=== PATIENT | male | born 1995 | race Two or more races ===

== ENCOUNTER 2018-08-28 22:08 | Emergency (ER) | payer OTHER ==
[~2018-08-28] VITALS: Ht 162.6 cm; Wt 96.6 kg
[~2018-08-28 22:08] MED LIST: KEFLEX500 MG ORAL; NKM; SILVADENE CREAM50 GM TOP
[2018-08-28 22:20] VITALS: BP 136/61
--- NOTE | 2018-08-28 22:20 | NUR ---
ED Nurse Note: Pt arrived ED from Home, c/o right side of abdominal pain today, 02/24. Pt is A/O X 4. Vital signs stable at this time, waitng for orders.
--- NOTE | 2018-08-28 22:42 | Emergency Room Report ---
History of Present Illness General Chief Complaint: Abdominal Pain Source: Patient Present Illness HPI Patient is 22-year-old male presented after increased left-sided flank pain. Patient reports of increased pain after lifting a heavy can of oil. He reports having injury after lifting object was approximately 60 pounds. He denies any pain without movements. He reports having some increased pain with Valsalva. He denies any numbness or weakness to his extremities. He denies any vomiting or diarrhea. He had not been having any fever. Allergies: Coded Allergies: No Known Allergies (Unverified , 02/06/14) Patient History Reviewed Nursing Documentation: PMH: Agreed; PSxH: Agreed Nursing Documentation-PMH Past Medical History: No Stated History Physical Exam Vital Signs Date Time Temp Pulse Resp B/P (MAP) Pulse Ox O2 Delivery O2 Flow Rate FiO2 08/28/18 22:21 98.2 60 16 127/78 100 Room Air General Appearance: well appearing, no apparent distress, alert, GCS 15 Head: normocephalic, atraumatic ENT: hearing grossly normal, normal voice Neck: full range of motion, supple Respiratory: no respiratory distress, speaking full sentences Cardiovascular #1: normal inspection, no edema, no gallop Gastrointestinal: normal inspection, normal bowel sounds, non tender, soft Musculoskeletal: no calf tenderness Neurologic: normal inspection, alert, oriented x3, responsive, engineering teacher III-XII nml as tested, normal gait Psychiatric: mood/affect normal Skin: no rash Medical Decision Making Diagnostic Impression: Primary Impression: Abdominal wall pain ER Course Patient presented for abdominal pain. Differential diagnoses included ischemic bowel, appendicitis, perforated viscus, abdominal aortic aneurysm, inferior myocardial infarction, viral gastroenteritis among others. Because of complexity of patient's case imaging studies were ordered.CT of abdomen pelvis read by radiology showed no evidence of hernia. There is no evidence of kidney stones. Patient was noted to have pain which appears to be muscular in nature. He was placed on light duty. Patient was advised to take nonsteroidal anti- inflammatory medication and to follow-up with his primary care physician for recheck. Labs Test 08/28/18 23:21 Urine Color Pale yellow Urine Appearance Clear Urine pH 7 (4.5-8.0) Urine Specific [place] 1.005 (1.005-1.035) Urine Protein Negative (NEGATIVE) Urine Glucose (UA) Negative (NEGATIVE) Urine Ketones Negative (NEGATIVE) Urine Blood Negative (NEGATIVE) Urine Nitrite Negative (NEGATIVE) Urine Bilirubin Negative (NEGATIVE) Urine Urobilinogen Normal MG/DL (0.0-1.0) Urine Leukocyte Esterase Negative (NEGATIVE) Last Vital Signs Date Time Temp Pulse Resp B/P (MAP) Pulse Ox O2 Delivery O2 Flow Rate FiO2 08/28/18 22:21 98.2 60 16 127/78 100 Room Air Status: improved Disposition: HOME, SELF-CARE Condition: Stable Scripts Ibuprofen* (MOTRIN*) 600 Mg Tablet 600 MG ORAL Q8H PRN for For Pain, #30 TAB 0 Refills Prov: Edin Rooney MD 08/28/18 Edin Rooney MD Aug 28, 2018 22:42
[2018-08-28] MEDS ORDERED: Ketorolac 60mg Inj IM ONE (22:45)
[2018-08-28] MEDS ORDERED: IBUPROFEN600 MG ORAL (23:19)
[2018-08-28 23:45] LABS: APPEARANCE,URINE CLEAR; BILIRUBIN, URINE NEGATIVE (NEGATIVE); COLOR,URINE PALE YELLOW; GLUCOSE, URINE (UA) NEGATIVE (NEGATIVE); KETONES,URINE NEGATIVE (NEGATIVE); LEUKOCYTE ESTERASE ,URINE NEGATIVE (NEGATIVE); NITRITE,URINE NEGATIVE (NEGATIVE); PH,URINE 7 (4.5-8.0); PROTEIN,URINE NEGATIVE (NEGATIVE); UROBILINOGEN,URINE NORMAL MG/DL (0.0-1.0)
[2018-08-29 00:04] VITALS: BP 123/74
--- NOTE | 2018-08-29 00:04 | NUR ---
ER DISCHARGE NOTE: Patient is cleared to be discharged per Dr. Rooney. Pt is aox4 on room air with stable vital signs. Pt was given dc and prescription instructions, pt was able to verbalize understanding, pt id band removed . pt is able to ambulate with steady gait. pt took all belongings.
--- NOTE | 2018-08-29 08:37 | Diagnostic Imaging Report ---
Indication: Right-sided abdominal pain over one day, 9 out of 10 Technique: Spiral acquisitions obtained through the abdomen and pelvis. No oral contrast utilized, per emergency room physician request No IV contrast utilized, per referring physician request.. Multiplanar reconstructions were generated. Total dose length product 939.75 mGycm. CTDIvol(s) 17.93 mGy. Dose reduction achieved using automated exposure control Comparison: None Findings: The appendix is normal. There is no evidence of diverticulosis or diverticulitis. Distal esophagus, stomach, duodenum are normal. No small bowel distention. No free or loculated intraperitoneal gas or fluid is evident. Lack of IV contrast limits assessment of the solid organs. The liver, gallbladder, bile ducts, pancreas, spleen, adrenals, kidneys are all unremarkable. No retroperitoneal or mesenteric mass or adenopathy. No pelvic mass or adenopathy. The bladder is somewhat distended. The included lung bases are clear. The bones are unremarkable. Impression: Distended bladder. Otherwise negative The CT scanner at [facility] is accredited by the [employer] and the scans are performed using protocols designed to limit radiation exposure to as low as reasonably achievable to attain images of sufficient resolution adequate for diagnostic evaluation.
== END 2018-08-29 00:04 | disposition home or self-care (01) ==
LOC: EMR 23:42
DX: R10.9 Unspecified abdominal pain (principal)
CPT/HCPCS: 74176; 81003; 96372; 99284

== ENCOUNTER 2018-09-03 15:45 | Emergency (ER) | payer OTHER ==
[~2018-09-03] VITALS: Ht 162.6 cm; Wt 97.5 kg
[~2018-09-03 15:45] MED LIST changes: +IBUPROFEN600 MG ORAL
--- NOTE | 2018-09-03 16:04 | NUR ---
ED Nurse Note: PT WALKED IN TO ER TODAY FROM HOME. AOX4. PT WAS SENT HERE BY EMPLOYER WHO ASKED HIM TO GET FOLLOW UP AFTER BEING SEEN [place] [facility] FOR LEFT SIDED ABDOMINAL PAIN X LAST WEEK. ABDOMEN CT SCAN 08/28/18 NEGATIVE. PT DENIES ANY PAIN BUT SAYS THERE IS SOME "NOTICEABLE DISCOMFORT" IN THAT AREA.
[2018-09-03 16:06] VITALS: BP 126/68
--- NOTE | 2018-09-03 16:53 | Emergency Room Report ---
History of Present Illness General Chief Complaint: General Complaint Source: Patient Present Illness HPI 22-year-old male presents to the emergency department complaining of 6 out of 10 in severity left-sided flank/side pain status post injury sustained at work. Patient reports that he is here for follow-up he states that his symptoms have improved with rest however he still continues to have symptoms when exerting himself. Patient denies nausea, vomiting, constipation or diarrhea. Patient denies fevers, chills, erythema or significant tenderness to the localized area. Patient had CT done at his last visit and states that it was normal and he has been resting ever since. He reports that his pain as intermittent and it is exacerbated with attempting to carry heavy objects or reaching overhead. Denies any relieving factors. Allergies: Coded Allergies: No Known Allergies (Unverified , 02/06/14) Patient History Past Medical History: see triage record, old chart reviewed Past Surgical History: none Pertinent Family History: none Reviewed Nursing Documentation: PMH: Agreed; PSxH: Agreed Nursing Documentation-PMH Past Medical History: No History, Except For History Of Psychiatric Problem: Yes - depression Review of Systems All Other Systems: negative except mentioned in HPI Physical Exam Vital Signs Date Time Temp Pulse Resp B/P (MAP) Pulse Ox O2 Delivery O2 Flow Rate FiO2 09/03/18 15:47 98.4 74 18 123/61 98 Room Air Sp02 EP Interpretation: reviewed, normal General Appearance: no apparent distress, alert, GCS 15, non-toxic Head: normocephalic, atraumatic Eyes: bilateral eye normal inspection, bilateral eye PERRL ENT: hearing grossly normal, normal voice Neck: full range of motion Respiratory: lungs clear, normal breath sounds, speaking full sentences Cardiovascular #1: regular rate, rhythm Gastrointestinal: normal bowel sounds, soft, non-distended, no guarding, tenderness - mild ttp to the left side of the abdomen/flank area, no obvious deformities, no palpable masses or hernia, no bruises or erythema. Rectal: deferred Genitourinary: normal inspection, no CVA tenderness Musculoskeletal: back normal, gait/station normal, normal range of motion, non- tender Neurologic: alert, oriented x3, responsive, motor strength/tone normal, sensory intact, normal gait, speech normal, grossly normal Psychiatric: judgement/insight normal Skin: normal color, no rash, warm/dry, well hydrated Lymphatic: no adenopathy Medical Decision Making PA Attestation Dr. Costa is my supervising Physician whom patient management has been discussed with. Diagnostic Impression: Primary Impression: Abdominal wall pain Additional Impression: Encounter for medical screening examination ER Course 22-year-old male presents to the emergency department complaining of 6 out of 10 in severity left-sided flank/side pain status post injury sustained at work. Patient reports that he is here for follow-up he states that his symptoms have improved with rest however he still continues to have symptoms when exerting himself. Patient denies nausea, vomiting, constipation or diarrhea. Patient denies fevers, chills, erythema or significant tenderness to the localized area. Patient had CT done at his last visit and states that it was normal and he has been resting ever since. He reports that his pain as intermittent and it is exacerbated with attempting to carry heavy objects or reaching overhead. Denies any relieving factors. Ddx considered but are not limited to Diverticulitis, acute appy, diarrhea, UC, PUD, GE, pancreatitis, gallstone, renal stone, hernia just to name a few reviewed chart from previous visit and CT was unremarkable and did not show concerning pathology or hernia. Vital signs: are WNL, pt. is afebrile H&PE are most consistent with non-emergent follow up for abdominal wall pain and re-assessment for return to work. d/w pt. is symptoms are still present then he needs to follow up with a PCP or GI specialist for return to work clearance. ORDERS: none required at this time. ED INTERVENTIONS: none required at this time. DISCHARGE: At this time pt. is stable for d/c to home. Will provide printed patient care instructions, and any necessary prescriptions. Care plan and follow up instructions have been discussed with the patient prior to discharge. Last Vital Signs Date Time Temp Pulse Resp B/P (MAP) Pulse Ox O2 Delivery O2 Flow Rate FiO2 09/03/18 16:06 76 20 Room Air 09/03/18 16:06 98.2 126/68 99 Disposition: HOME, SELF-CARE Condition: Stable Scripts Diclofenac Sodium (VOLTAREN) 100 Gm Gel..gram. 1 GM TP Q6HR, #100 GM Prov: Leesa Forrest 09/03/18 Docusate Sodium* (COLACE*) 100 Mg Capsule 100 MG ORAL TWICE A DAY, #20 CAP Prov: Leesa Forrest 09/03/18 Patient Instructions: Medical Screening Exam Additional Instructions: Take medications as directed. continue light duty consisting of avoiding strenuous activities and heavy lifting need for follow-up with a GI specialist as you are still continuing to have symptoms. Although you've been evaluated in an emergency department we only evaluate for emergent conditions and this does not include conditions that later may need surgery as an outpatient so therefore you need to be evaluated by specialist in a non-emergent manner. Follow up with a Primary Care Provider in 3-5 days, even if your symptoms have resolved. Return sooner to ED if new symptoms occur, or current symptoms become worse. - Please note that this Emergency Department Report was dictated using [employer] machine tender technology software, occasionally this can lead to erroneous entry secondary to interpretation by the dictation equipment. Leesa Forrest Sep 03, 2018 16:53
[2018-09-03] MEDS ORDERED: VOLTAREN100 G1 TP (16:55)
[2018-09-03] MEDS ORDERED: COLACE100 MG ORAL (16:55)
--- NOTE | 2018-09-03 17:18 | NUR ---
ED Nurse Note: PT SITTING PEACEFULLY IN BED IN NAD. AOX4. PRESCRIPTIONS AND DISCHARGE PAPERWORK EXPLAINED TO PT. PT VERBALIZES UNDERSTANDING AND ALL QUESTIONS ANSWERED. PRESCRIPTIONS AND DISCHARGE PAPERWORK GIVEN TO PT AND ID WRISTBAND REMOVED. PT WALKED OUT OF ER WITH STEADY GAIT AND ALL BELONGINGS.
== END 2018-09-03 17:19 | disposition home or self-care (01) ==
LOC: EMR 16:33
DX: R10.9 Unspecified abdominal pain (principal); F32.9 Major depressive disorder, single episode, unspecified
CPT/HCPCS: 99282